=== PATIENT | female | born 1995 | race Caucasian/White ===

== ENCOUNTER 2016-12-06 10:01 | Emergency (ER) | payer OTHER ==
[~2016-12-06] VITALS: Ht 157.5 cm; Wt 55.0 kg
[~2016-12-06 10:01] MED LIST: CIPR500T4 PO; DICL75 PO; PYRI200T4 PO
[2016-12-06 10:03] VITALS: BP 120/78; PULSE 94; RESP 20; TEMP 97.8; O2SAT 100
[2016-12-06] MEDS ORDERED: TRAM50TA PO (10:16)
[2016-12-06] MEDS ORDERED: NON-500T13 PO (10:30)
[2016-12-06] MEDS ORDERED: IBUP-232 PO (10:30)
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
== END 2016-12-06 10:42 | disposition home or self-care (01) ==
LOC: NEPK 10:01
DX: S06.0X9A Concussion with loss of consciousness of unspecified duration, initial encounter (principal); F17.200 Nicotine dependence, unspecified, uncomplicated; Z87.09 Personal history of other diseases of the respiratory system; Z86.59 Personal history of other mental and behavioral disorders; Z86.69 Personal history of other diseases of the nervous system and sense organs; Y04.2XXA Assault by strike against or bumped into by another person, initial encounter
CPT/HCPCS: 99283

== ENCOUNTER 2017-03-23 03:43 | Emergency (ER) | payer OTHER ==
[~2017-03-23] VITALS: Ht 157.5 cm; Wt 55.0 kg
[~2017-03-23 03:43] MED LIST changes: -CIPR500T4 PO; -DICL75 PO; +IBUP-232 PO; +NON-500T13 PO; -PYRI200T4 PO; +TRAM50TA PO
[2017-03-23 03:44] VITALS: BP 132/75; PULSE 128; RESP 18; TEMP 98.9; O2SAT 98
[2017-03-23] MEDS ORDERED: SODIUM CHLORIDE 0.9% FLUSH 10 ML FLUSH IV FLUSH PRN (05:15)
--- NOTE | 2017-03-23 05:20 | PD ---
HPI Chief Complaint: Abdominal Pain Time Seen by Provider: 05:17 Travel History International Travel<30 days: No Contact w/Intl Traveler<30days: No Traveled to known affect area: No History of Present Illness HPI 21-year-old female patient presents to the ER today for 1 month history of abdominal pains with intermittent nausea and vomiting. She states it was worse today and she states is a 20 out of 10. She has been vomiting intermittently. She denies any diarrhea, fevers, or any other symptoms. She denies any exacerbating or alleviating factors. Modifying Factors: None Associated Signs & Symptoms: Abdominal pains, nausea and vomiting Risk Factors: None PFSH Past Medical History Hx Anticoagulant Therapy: No Asthma: Yes Anxiety: Yes Depression: Yes Cardiovascular Problems: No Chemotherapy: No Cerebrovascular Accident: No Diabetes: No Diminished Hearing: No Respiratory: No Integumentary: Yes (HX BARTHOLIN CYST) Immunizations Current: No Migraines: Yes ?: Not LMP: 03/16/17 Menopausal: No : 2 Para: 0 Miscarriage: 1 : 1 Past Surgical History Surgical History: No Previous Surgery Hysterectomy: No Social History Alcohol Use: Yes (OCC) Tobacco Use: Yes (1 PPD) Substance Use: Yes (meth last use is over a month ) Allergies-Medications (Allergen,Severity, Reaction): Coded Allergies: red dye (Unverified Allergy, Severe, Hives, 03/23/17) Reported Meds & Prescriptions Reported Meds & Active Scripts Active Ibuprofen 600 Mg Tab 600 Mg PO Q6H PRN Non-Aspirin Pain Relief ES (Acetaminophen) 500 Mg Tab 500 Mg PO Q6HR PRN Reported Tramadol (Tramadol HCl) 50 Mg Tab 50 Mg PO Q4H PRN Review of Systems Except as stated in HPI: all other systems reviewed are Neg Physical Exam Narrative GENERAL: Well developed young white female patient currently in moderate distress, tearful. Awake and oriented 3.] SKIN: Focused skin assessment warm/dry. HEAD: Atraumatic. Normocephalic. EYES: Pupils equal and round. No scleral icterus. No injection or drainage. ENT: No nasal bleeding or discharge. Mucous membranes pink and moist. NECK: Trachea midline. No JVD. CARDIOVASCULAR: Regular rate and rhythm. No murmur appreciated. RESPIRATORY: No accessory muscle use. Clear to auscultation. Breath sounds equal bilaterally. GASTROINTESTINAL: Abdomen soft, epigastric and periumbilical tenderness without guarding or rebound, nondistended. Hepatic and splenic margins not palpable. MUSCULOSKELETAL: No obvious deformities. No clubbing. No cyanosis. No edema. NEUROLOGICAL: Awake and alert. No obvious cranial nerve deficits. Motor grossly within normal limits. Normal speech. PSYCHIATRIC: Appropriate mood and affect; insight and judgment normal. Data Data Last Documented VS Vital Signs Date Time Temp Pulse Resp B/P (MAP) Pulse Ox O2 Delivery O2 Flow Rate FiO2 03/23/17 03:44 98.9 128 18 132/75 (94) 98 Room Air Orders Orders Complete Blood Count With Diff (03/23/17 05:14) Comprehensive Metabolic Panel (03/23/17 05:14) Lipase (03/23/17 05:14) Urinalysis - C+S If Indicated (03/23/17 05:14) Iv Access Insert/Monitor (03/23/17 05:14) Ecg Monitoring (03/23/17 05:14) Oximetry (03/23/17 05:14) Sodium Chloride 0.9% Flush (Ns Flush) (03/23/17 05:15) Ed Urine Pregnancytest Poc (03/23/17 05:14) Sodium Chlor 0.9% 1000 Ml Inj (Ns 1000 M (03/23/17 05:30) Ondansetron Inj (Zofran Inj) (03/23/17 05:30) Pantoprazole Inj (Protonix Inj) (03/23/17 05:30) MDM Medical Decision Making Medical Screen Exam Complete: Yes Emergency Medical Condition: Yes Medical Record Reviewed: Yes Differential Diagnosis Abdominal pain, nausea and vomiting: Gastritis versus gastroenteritis versus versus dehydration versus metabolic issues Narrative Course Lab work was ordered and the patient. However, before I was able to get anything done, patient refused to get any further workup, and wanted to leave. We have discussed the fact that the patient has not had a workup and we would not be a little to give her any further evaluation as to whether she has an acute medical process, patient states understanding, but still wants to sign out AGAINST MEDICAL ADVICE. AMA: The risks of leaving against medical advice without further evaluation treatment were discussed with the patient. These risks include cardiac dysfunction, cardiac dysrhythmia, possible heart attack, possible stroke or . The patient indicated understanding of these risks and appeared to have the capacity to make this decision. Diagnosis Primary Impression: Abdominal pain Disposition: 07 AGAINST MEDICAL ADVICE Condition: Stable Yu Baxter MD Mar 23, 2017 05:20
[2017-03-23] MEDS ORDERED: PANTOPRAZOLE SODIUM 40 MG VIAL IV PUSH ONE (05:30)
[2017-03-23] MEDS ORDERED: SODIUM CHLOR 0.9% 1000 ML INJ 1,000 ML IV ONE (05:30)
[2017-03-23] MEDS ORDERED: ONDANSETRON HCL 4 MG/2 ML VIAL IV PUSH ONE (05:30)
== END 2017-03-23 06:04 | disposition left against medical advice (07) ==
LOC: NEPE 03:43
DX: R10.9 Unspecified abdominal pain (principal)
CPT/HCPCS: 99281

== ENCOUNTER 2017-08-13 14:24 | Emergency (ER) | payer SELFPAY ==
[2017-08-13 14:42] VITALS: BP 136/74; PULSE 113; RESP 14; TEMP 99.3; O2SAT 99
--- NOTE | 2017-08-13 15:18 | PD ---
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 at same time developed urgency/frequency/and dysuria over the same time frame. patient is in a drug sammi program and so is tested daily via urinalysis, which is how she noticed these changes. patient denies unprotected intercourse over the last 3 weeks per pt. all:nkda pmhx: denies pshx:denies PFSH Past Medical History Hx Anticoagulant Therapy: No Asthma: Yes Anxiety: Yes Depression: Yes Cardiovascular Problems: No Chemotherapy: No Cerebrovascular Accident: No Diabetes: No Diminished Hearing: No Respiratory: No Integumentary: Yes (HX BARTHOLIN CYST) Immunizations Current: No Migraines: Yes Menopausal: No : 2 Para: 0 Miscarriage: 1 : 1 Past Surgical History Hysterectomy: No Social History Alcohol Use: Yes (OCC) Tobacco Use: Yes (1 PPD) Substance Use: Yes (meth last use is over a month ) Allergies-Medications (Allergen,Severity, Reaction): Coded Allergies: red dye (Unverified Allergy, Severe, Hives, 08/13/17) Reported Meds & Prescriptions Reported Meds & Active Scripts Active No Active Prescriptions or Reported Medications Review of Systems Except as stated in HPI: all other systems reviewed are Neg Genitourinary: Positive: Urgency, Frequency, Dysuria, Hematuria, Other (vag d/c ) Physical Exam Narrative GENERAL: SKIN: Warm and dry. HEAD: Atraumatic. Normocephalic. EYES: Pupils equal and round. No scleral icterus. No injection or drainage. ENT: No nasal bleeding or discharge. Mucous membranes pink and moist. NECK: Trachea midline. No JVD. CARDIOVASCULAR: Regular rate and rhythm. RESPIRATORY: No accessory muscle use. Clear to auscultation. Breath sounds equal bilaterally. GASTROINTESTINAL: Abdomen soft, non-tender, nondistended. MUSCULOSKELETAL: Extremities without clubbing, cyanosis, or edema. No obvious deformities. NEUROLOGICAL: Awake and alert. No obvious cranial nerve deficits. Motor grossly within normal limits. Five out of 5 muscle strength in the arms and legs. Normal speech. PSYCHIATRIC: Appropriate mood and affect; insight and judgment normal. Data Data Last Documented VS Vital Signs Date Time Temp Pulse Resp B/P (MAP) Pulse Ox O2 Delivery O2 Flow Rate FiO2 08/13/17 15:47 98.4 95 14 101/50 (67) 99 Room Air Orders Orders Urinalysis - C+S If Indicated (08/13/17 14:41) Ed Urine Pregnancytest Poc (08/13/17 14:41) Gc And Chlamydia Pcr (08/13/17 15:11) Labs Laboratory Tests Test 08/13/17 14:45 08/13/17 15:30 Urine Color LIGHT-YELLOW Urine Turbidity HAZY Urine pH 6.0 Urine Specific [place] 1.006 Urine Protein NEG mg/dL Urine Glucose (UA) NEG mg/dL Urine Ketones NEG mg/dL Urine Occult Blood MOD Urine Nitrite NEG Urine Bilirubin NEG Urine Urobilinogen LESS THAN 2.0 MG/DL Urine Leukocyte Esterase TRACE Urine RBC 3 /hpf Urine WBC 3 /hpf Urine Squamous Epithelial Cells 13 /hpf Urine Bacteria RARE /hpf Microscopic Urinalysis Comment CULT NOT INDICATED MDM Medical Decision Making Medical Screen Exam Complete: Yes Emergency Medical Condition: Yes Medical Record Reviewed: Yes Differential Diagnosis uti v preg related v bacterial vaginitis v gonorrhea v chlamydia Narrative Course UA HAS SOME LEUK ESTERASE AND WILL BE TREATED A POSSIBLE MILD UTI GC/CHLAM PENDING Diagnosis Primary Impression: UTI Patient Instructions: General Instructions, Urinary Tract Infection in Women ( [place]) Additional Instructions: ADDITIONAL TEST PENDING , IF POSITIVE YOU WILL BE CALLED AND TREATMENT WILL BE CALLED IN TO YOUR PHARMACY OF CHOICE. Scripts Nitrofurantoin Monohydrate Macrocrystals (Macrobid) 100 Mg Capsule 100 MG PO BID for Infection for 7 Days, #14 CAP 0 Refills Prov: Alejo Eric MD 08/13/17 Disposition: 01 DISCHARGE HOME Condition: Stable Alejo Eric MD Aug 13, 2017 15:18
[2017-08-13 15:47] VITALS: BP 101/50; PULSE 95; RESP 14; TEMP 98.4; O2SAT 99
[2017-08-13 15:55] LABS: BACTERIA, URINE RARE /hpf; BILIRUBIN, URINE NEG (NEG); BLOOD, URINE MOD (NEG); GLUCOSE,URINE NEG (NEG); KETONE, URINE NEG (NEG); NITRITE,URINE NEG (NEG); SQUAMOUS EPITHELIAL CELL URINE 13 /hpf (0-5); URINE COLOR LIGHT-YELLOW (YELLW/STRAW); URINE LEUKOCYTE ESTERASE TRACE (NEG)
[2017-08-13] MEDS ORDERED: MACR100C2 PO (16:55)
== END 2017-08-13 17:20 | disposition home or self-care (01) ==
LOC: NEPD 14:24
DX: N39.0 Urinary tract infection, site not specified (principal); F17.210 Nicotine dependence, cigarettes, uncomplicated
CPT/HCPCS: 81001; 84703; 87491; 87591; 99283

== ENCOUNTER 2017-10-09 18:23 | Emergency (ER) | payer SELFPAY ==
[~2017-10-09 18:23] MED LIST changes: -IBUP-232 PO; +MACR100C2 PO; -NON-500T13 PO; -TRAM50TA PO
[2017-10-09 18:26] VITALS: BP 132/61; PULSE 92; RESP 18; TEMP 98.7; O2SAT 100
--- NOTE | 2017-10-09 19:37 | PD ---
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 Patient states is accompanied with some mild nausea but no abdominal pain no fevers. She denies possibility of STDs. Denies possibility of . States symptoms are mild, for the past week, gradually worsening, associated signs symptoms as above PFSH Past Medical History Hx Anticoagulant Therapy: No Asthma: Yes Anxiety: Yes Depression: Yes Cardiovascular Problems: No Chemotherapy: No Cerebrovascular Accident: No Diabetes: No Diminished Hearing: No Respiratory: No Integumentary: Yes (HX BARTHOLIN CYST) Immunizations Current: No Migraines: Yes Tetanus Vaccination: < 5 Years ?: Not LMP: "LAST WEEK" Menopausal: No : 2 Para: 0 Miscarriage: 1 : 1 Dilation and Curettage (D&C): Yes Past Surgical History Hysterectomy: No Social History Alcohol Use: Yes (OCC) Tobacco Use: Yes (1 PPD) Substance Use: No Allergies-Medications (Allergen,Severity, Reaction): Coded Allergies: red dye (Unverified Allergy, Severe, Hives, 08/13/17) Reported Meds & Prescriptions Reported Meds & Active Scripts Active No Active Prescriptions or Reported Medications Review of Systems Except as stated in HPI: all other systems reviewed are Neg Physical Exam Narrative GENERAL: Well-developed well-nourished no obvious, pink hair. SKIN: Focused skin assessment warm/dry. HEAD: Atraumatic. Normocephalic. EYES: Pupils equal and round. No scleral icterus. No injection or drainage. ENT: No nasal bleeding or discharge. Mucous membranes pink and moist. NECK: Trachea midline. No JVD. CARDIOVASCULAR: Regular rate and rhythm. No murmur appreciated. RESPIRATORY: No accessory muscle use. Clear to auscultation. Breath sounds equal bilaterally. GASTROINTESTINAL: Abdomen soft, non-tender, nondistended. Hepatic and splenic margins not palpable. GENITOURINARY: Exam performed with female nurse Evelia chang present all times. There is milky white discharge in the vaginal vault, no cervical friability, no cervical motion tenderness. No vaginal bleeding no vaginal tears. No external lesion. MUSCULOSKELETAL: No obvious deformities. No clubbing. No cyanosis. No edema. NEUROLOGICAL: Awake and alert. No obvious cranial nerve deficits. Motor grossly within normal limits. Normal speech. PSYCHIATRIC: Appropriate mood and affect; insight and judgment normal. Data Data Last Documented VS Vital Signs Date Time Temp Pulse Resp B/P (MAP) Pulse Ox O2 Delivery O2 Flow Rate FiO2 10/09/17 18:26 98.7 92 18 132/61 (84) 100 Orders Orders Wet Prep Profile (10/09/17 18:45) Gc And Chlamydia Pcr (10/09/17 18:45) Ed Urine Pregnancytest Poc (10/09/17 18:45) Urinalysis - C+S If Indicated (10/09/17 18:45) Ceftriaxone Inj (Rocephin Inj) (10/09/17 20:00) Metronidazole (Flagyl) (10/09/17 20:00) Azithromycin (Zithromax) (10/09/17 20:00) Ed Discharge Order (10/09/17 19:52) Urine Culture (10/09/17 19:25) Labs Laboratory Tests Test 10/09/17 19:15 10/09/17 19:25 Clue Cells (Wet Prep) NONE SEEN Vaginal Trichomonas (Wet Prep) PRESENT Vaginal Yeast (Wet Prep) NONE SEEN Urine Color LIGHT-YELLOW Urine Turbidity HAZY Urine pH 7.5 Urine Specific [place] 1.007 Urine Protein NEG mg/dL Urine Glucose (UA) NEG mg/dL Urine Ketones NEG mg/dL Urine Occult Blood NEG Urine Nitrite NEG Urine Bilirubin NEG Urine Urobilinogen LESS THAN 2.0 MG/DL Urine Leukocyte Esterase LARGE Urine RBC 8 /hpf Urine WBC 9 /hpf Urine Squamous Epithelial Cells 37 /hpf Urine Bacteria FEW /hpf Microscopic Urinalysis Comment CULTURE INDICATED Chlamydia trachomatis DNA (PCR) NOT DETECTED Neisseria gonorrhoeae DNA (PCR) NOT DETECTED MDM Medical Decision Making Medical Screen Exam Complete: Yes Emergency Medical Condition: Yes Differential Diagnosis BV, trichomonas, chlamydia, gonorrhea, candidal vaginitis Narrative Course Patient room to the emergency department, sign symptoms most characteristic of BV however the wet prep is positive for trichomonas negative for clue cells. Patient counseled on the positive test for STD, will also cover empirically for gonorrhea and chlamydia. Discussed need follow-up with health department barrier contraceptive and return to ED criteria. She is stable for discharge Diagnosis Primary Impression: Trichomonas vaginitis Additional Impression: STD (female) Additional Instructions: Have your partner(s) tested and treated for STDs. Recommend following up with the health department for testing for HIV hepatitis and syphilis. Always use condoms. Do not drink alcohol for 48 hours he will start throwing up and will be able to stop. Scripts No Active Prescriptions or Reported Meds Disposition: 01 DISCHARGE HOME Condition: Stable Marco Dela Cruz MD Oct 09, 2017 19:37
[2017-10-09 19:49] LABS: BACTERIA, URINE FEW /hpf; BILIRUBIN, URINE NEG (NEG); BLOOD, URINE NEG (NEG); GLUCOSE,URINE NEG (NEG); KETONE, URINE NEG (NEG); NITRITE,URINE NEG (NEG); PH, URINE 7.5 (5.0-8.5); SQUAMOUS EPITHELIAL CELL URINE 37 /hpf (0-5); URINE COLOR LIGHT-YELLOW (YELLW/STRAW); URINE LEUKOCYTE ESTERASE LARGE (NEG)
[2017-10-09] MEDS ORDERED: AZITHROMYCIN 250 MG TAB PO ONE (20:00)
[2017-10-09] MEDS ORDERED: cefTRIAXone 250 MG VIAL IM ONE (20:00)
[2017-10-09] MEDS ORDERED: metroNIDAZOLE 500 MG TAB PO ONE (20:00)
== END 2017-10-09 21:43 | disposition home or self-care (01) ==
LOC: NEPD 18:23
DX: A59.01 Trichomonal vulvovaginitis (principal); J45.909 Unspecified asthma, uncomplicated; F41.9 Anxiety disorder, unspecified; F32.9 Major depressive disorder, single episode, unspecified; F17.200 Nicotine dependence, unspecified, uncomplicated
CPT/HCPCS: 81001; 84703; 87086; 87210; 87491; 87591; 96372; 99283; J0696